=== PATIENT | male | born 1990 | race African-American/Black ===

== ENCOUNTER 2020-09-23 09:53 | Emergency (ER) | payer SELFPAY ==
[~2020-09-23] VITALS: Ht 180.3 cm; Wt 113.4 kg
--- NOTE | 2020-09-23 10:00 | NUR ---
Dr Castano at the bedside for MSE.
--- NOTE | 2020-09-23 10:12 | NUR ---
Pt out of ER for CT.
[2020-09-23] MEDS ORDERED: IBUPROFEN 600 MG TABLET ONE (10:13)
[2020-09-23] MEDS ORDERED: IBUPROFEN 600 MG TABLET PO ONE (10:15)
--- NOTE | 2020-09-23 10:29 | NUR ---
Pt back from Ct, resting in bed, NAD noted.
[2020-09-23 10:47] VITALS: BP 134/78
--- NOTE | 2020-09-23 10:52 | NUR ---
Patient discharged to home in stable condition. Written and verbal after care instructions given. Patient verbalizes understanding of instructions. Stressed follow up or return to ER for worsening s/s. Pt walked out of ER w/ steady gait.
== END 2020-09-23 11:00 | disposition home or self-care (01) ==
LOC: ER 09:53
DX: S06.0X1A Concussion with loss of consciousness of 30 minutes or less, initial encounter (principal); R40.2362 Coma scale, best motor response, obeys commands, at arrival to emergency department; R40.2142 Coma scale, eyes open, spontaneous, at arrival to emergency department; R40.2252 Coma scale, best verbal response, oriented, at arrival to emergency department; W18.2XXA Fall in (into) shower or empty bathtub, initial encounter; Y93.E1 Activity, personal bathing and showering; Y92.012 Bathroom of single-family (private) house as the place of occurrence of the external cause
CPT/HCPCS: 70450; 72125; A4663